=== PATIENT | female | born 1975 | race Caucasian/White ===

== ENCOUNTER 2017-09-05 10:26 | Emergency (ER) | payer MEDICAID ==
[~2017-09-05] VITALS: Ht 165.1 cm; Wt 59.0 kg
[2017-09-05 10:30] VITALS: Ht 165.1 cm; Wt 59.0 kg
--- NOTE | 2017-09-05 14:11 | RADRPT ---
PROCEDURE: XR Chest. CLINICAL INDICATION: chest pain TECHNIQUE: Single frontal view of the chest was obtained COMPARISON: None FINDINGS: The heart and mediastinum are within normal limits. The lungs are clear. There is no pleural effusion or pneumothorax. RPTAT: AA IMPRESSION: No acute disease. .Weston Birmingham MD, Date Time Electronically viewed and signed by .Weston Birmingham MD, on 09/05/2017 14:11 .S/
[2017-09-05 14:19] LABS: BASOPHILS % 0.5 % (0.0-2.0); EOSINOPHILS % 0.5 % (0.0-7.0); HEMATOCRIT 44.7 % (37.0-47.0); HEMOGLOBIN 15.1 g/dl (12.0-16.0); LYMPHOCYTES # 2.9 10^3/ul (0.8-2.9); LYMPHOCYTES % 50.1 % (15.0-51.0); MEAN CORPUSCULAR HEMOGLOBIN 31.7 pg (29.0-33.0); MEAN CORPUSCULAR HGB CONC 33.8 g/dl (32.0-37.0); MEAN CORPUSCULAR VOLUME 93.7 fl (82.0-101.0); MEAN PLATELET VOLUME 11.3 fl (7.4-10.4); MONOCYTE # 0.3 10^3/ul (0.3-0.9); MONOCYTES % 5.9 % (0.0-11.0); NEUTROPHIL # 2.5 10^3/ul (1.6-7.5); NEUTROPHILS % 42.8 % (39.0-77.0); PLATELET COUNT 256 10^3/UL (140-415); RED BLOOD COUNT 4.77 10^6/ul (4.20-5.40); WHITE BLOOD COUNT 5.7 10^3/ul (4.8-10.8)
[2017-09-05 14:39] LABS: ANION GAP 15 (8-16); BLOOD UREA NITROGEN 14 mg/dl (7-20); CALCIUM 9.9 mg/dl (8.4-10.2); CARBON DIOXIDE 29 mmol/L (21-31); CHLORIDE 104 mmol/L (97-110); CREATINE KINASE 286 IU/L (23-200); CREATININE 0.63 mg/dl (0.44-1.00); GLUCOSE 84 mg/dl (70-220); POTASSIUM 3.8 mmol/L (3.5-5.1); SODIUM 144 mmol/L (135-144)
[2017-09-05] MEDS ORDERED: KETOROLAC 30 MG INJ IV STA (14:49)
[2017-09-05 14:51] LABS: TROPONIN-I < 0.012 ng/ml (0.00-0.12)
[2017-09-05] MEDS ORDERED: IBUP800T25 PO (15:31)
--- NOTE | 2017-09-05 15:31 | ERD ---
ER Documentation Chief Complaint Chief Complaint CHEST WALL PAIN RADIATING UP TO THROAT HPI This is a 42-year-old female with no previous medical conditions who presents to the emergency room for evaluation of chest pain. Patient states that she has had chest pain for approximately 72 hours and has been constant. She localizes it to the center of her chest and describes as an achy sensation with no radiation. The patient states that she has no medical conditions, she is non -smoker, no family history of any cardiac disease, and states that her chest pain is sometimes worsened with deep inspiration. ROS All systems reviewed and are negative except as per history of present illness. Medications Home Meds No Active Prescriptions or Reported Meds Allergies Allergies: Coded Allergies: No Known Allergy (Unverified , 09/05/17) Physical Exam Vitals Vital Signs Date Time Temp Pulse Resp B/P Pulse Ox O2 Delivery O2 Flow Rate FiO2 09/05/17 10:30 98.6 63 16 107/58 98 Physical Exam INITIAL VITAL SIGNS: Reviewed by me GENERAL: The patient is well developed and appropriate for usual state of health in no apparent distress HEENT: Pupils equal, round, and reactive to light. EOMI. There is no scleral icterus. NECK: C-spine is soft and supple, there is no meningismus. There is no cervical lymphadenopathy. LUNGS: Clear to auscultation bilaterally. There are no rales, wheezes or rhonchi. HEART: Regular rate and rhythm, no murmurs, clicks, rubs or gallops. ABDOMEN: Soft, non-tender, non-distended. There are bowel sounds in all four quadrants. No rebound or guarding. EXTREMITIES: There is no peripheral cyanosis or edema. No focal swelling or erythema. NEUROLOGICAL: The patient moves all four extremities with 5/5 strength. Cranial nerves II - XII are intact. Normal gait. Alert and oriented SKIN: There is no apparent rash or petechiae. HEME/LYMPHATIC: There is no evidence of excessive bruising or lymphedema. PSYCHIATRIC: The patient does not appear anxious or depressed. Result Diagram: 09/05/17 1340 09/05/17 1340 Results 24 hrs Laboratory Tests Test 09/05/17 13:40 White Blood Count 5.710^3/ul Red Blood Count 4.7710^6/ul Hemoglobin 15.1g/dl Hematocrit 44.7% Mean Corpuscular Volume 93.7fl Mean Corpuscular Hemoglobin 31.7pg Mean Corpuscular Hemoglobin Concent 33.8g/dl Red Cell Distribution Width 12.0% Platelet Count 97692^3/UL Mean Platelet Volume 11.3fl Neutrophils % 42.8% Lymphocytes % 50.1% Monocytes % 5.9% Eosinophils % 0.5% Basophils % 0.5% Nucleated Red Blood Cells % 0.0/100WBC Neutrophils # 2.510^3/ul Lymphocytes # 2.910^3/ul Monocytes # 0.310^3/ul Eosinophils # 0.010^3/ul Basophils # 0.010^3/ul Nucleated Red Blood Cells # 0.010^3/ul Sodium Level 144mmol/L Potassium Level 3.8mmol/L Chloride Level 104mmol/L Carbon Dioxide Level 29mmol/L Anion Gap 15 Blood Urea Nitrogen 14mg/dl Creatinine 0.63mg/dl Glucose Level 84mg/dl Calcium Level 9.9mg/dl Creatine Kinase 286IU/L Creatine Kinase Index Pending Creatinine Kinase MB (Mass) Pending Troponin I Pending Current Medications Medications (Trade) Dose Ordered Sig/Montse Route PRN Reason Start Time Stop Time Status Last Admin Dose Admin Ketorolac Tromethamine (Toradol) 30 mg ONCE STAT IV 09/05/17 14:49 09/05/17 14:50 DC 09/05/17 15:01 Procedures/MDM EKG: Rate/Rhythm: [Normal Sinus Rhythm] QRS, ST, T-waves: [No changes consistent w/ acute ischemia] Impression: [No evidence of ischemia or arrhythmia] EKG: #2 Rate/Rhythm: [Normal Sinus Rhythm] QRS, ST, T-waves: [No changes consistent w/ acute ischemia] Impression: [No evidence of ischemia or arrhythmia] Chest X-ray 1V Interpreted by me: Soft Tissue: No acute abnormalities Bones: No acute abnormalities Mediastinum/Cardiac Silhouette/Lungs: [No acute abnormalities] This 42-year-old female presents to the ER for evaluation of chest pain. When I evaluated this patient she was nontoxic appearing, hemodynamically stable and in no acute distress. This patient was complaining of constant chest pain for the past 3 days. EKG was obtained in the initial EKG shows normal sinus rhythm with no ST elevation or depression. Lab work was obtained including a troponin which is negative. This patient's chest x-ray is also clear. This patient had a second EKG which does not show any evolving changes are ST changes as compared to the first. This patient has a PERC score of 0. She has a heart score of 0. She was given Toradol in the emergency room and does feel better. This patient could be suffering from costochondritis given the fact that she is feeling better with administration of nonsteroidal medication. She was advised to follow-up with her primary care physician or return to the ER for further evaluation of her pain worsened and she verbalized understanding. Differential diagnoses entertained was broad with potential high acuity. Patient has been evaluated for acute myocardial infarction, unstable angina, aortic dissection, pulmonary embolism, other intrathoracic and cardiac concerns. Ultimately the patient's evaluation is nondiagnostic. Based on the patient's lack of risk factors, as well as the patient's clinical, laboratory, and imaging data, the patient appears to be low risk for these high risk causes of chest pain. Departure Diagnosis: Primary Impression: Chest wall pain Condition: Stable RICHARD REDDY DO Sep 05, 2017 15:31
[2017-09-05 15:42] VITALS: BP 130/68; PULSE 62; RESP 21; TEMP 98.1
[2017-09-05 16:25] LABS: CK-MB 0.78 ng/ml (0.0-2.4); TROPONIN-I < 0.012 ng/ml (0.00-0.12)
== END 2017-09-05 15:51 | disposition home or self-care (01) ==
LOC: E/R 10:26
DX: R07.89 Other chest pain (principal)
CPT/HCPCS: 36415; 71010; 80048; 82550; 82553; 84484; 85025; 93005; 96374; J1885; Z7502